=== PATIENT | male | born 1930 | race Asian ===

== ENCOUNTER 2016-06-29 06:32 | Day surgery (SDC) | payer MEDICARE, OTHER ==
[~2016-06-29] VITALS: Ht 157.5 cm; Wt 68.2 kg
[~2016-06-29 06:32] MED LIST: ALLO100T PO; ASPI-556 PO; CHOLESTEROL; METO-325 PO; SITA50 PO
[2016-06-29] MEDS ORDERED: SITA100 PO (06:46)
[2016-06-29] MEDS ORDERED: ATOR40TA28 PO (06:46)
[2016-06-29] MEDS ORDERED: DICLOFENAC SODIUM 0.1% 2.5 ML OPHTHALMIC SOLUTION OS ONE (07:00)
[2016-06-29] MEDS ORDERED: BESIFLOXACIN HCL 0.6% 5 ML OPHTHALMIC SUSPENSION OS ONE (07:00)
[2016-06-29 07:25] LABS: GLUCOSE,POINT OF CARE 114 MG/DL (70-110)
[2016-06-29] MEDS: TROPICAMIDE 1% 2 ML OPHTHALMIC SOLUTION OS SCH ×2 (07:25→07:33)
[2016-06-29] MEDS: PHENYLEPHRINE HCL 2.5% 2 ML OPHTHALMIC SOLUTION OS SCH ×2 (07:26→07:33)
[2016-06-29] MEDS ORDERED: RINGERS SOLUTION,LACTATED 500 ML IV ONE ×2 (08:00→14:20)
[2016-06-29] MEDS ORDERED: MIDAZOLAM HCL 2 MG/2 ML VIAL IVP ONE (12:00)
[2016-06-29] MEDS ORDERED: FentaNYL CITRATE-PF 100 MCG/2 ML VIAL IVP ONE (12:00)
[2016-06-29] MEDS ORDERED: PHENYLEPHRINE HCL 2.5% 2 ML OPHTHALMIC SOLUTION ONE (14:20)
[2016-06-29] MEDS ORDERED: BESIFLOXACIN HCL 0.6% 5 ML OPHTHALMIC SUSPENSION ONE (14:20)
[2016-06-29] MEDS ORDERED: TROPICAMIDE 1% 2 ML OPHTHALMIC SOLUTION ONE (14:20)
[2016-06-29] MEDS ORDERED: DICLOFENAC SODIUM 0.1% 2.5 ML OPHTHALMIC SOLUTION ONE (14:20)
[2016-06-29] MEDS ORDERED: DEXAMETHASONE SOD PHOS 4 MG/ML VIAL IVP ONE (16:57)
[2016-06-29] MEDS ORDERED: TETRACAINE HCL VISCOUS 0.5% 0.6 ML OPHTHALMIC SOLUTION OS ONE (16:57)
[2016-06-29] MEDS ORDERED: LIDOCAINE HCL/PF 1% 2 ML VIAL IM ONE (16:57)
[2016-06-29] MEDS ORDERED: HYALURONATE SODIUM 12 MG/ML 0.8 ML SYRINGE IO ONE (16:57)
[2016-06-29] MEDS ORDERED: POVIDONE-IODINE 10% 15 ML SOLUTION UD TP ONE (16:57)
[2016-06-29] MEDS ORDERED: HYALURONATE SOD/CHONDROITIN SOD 0.5 ML VIAL IO ONE (16:57)
== END 2016-06-29 10:35 | disposition home or self-care (01) ==
LOC: SURGERY 06:32
PROVIDERS: ATTEND Specialist
DX: E11.36 Type 2 diabetes mellitus with diabetic cataract (principal); H25.012 Cortical age-related cataract, left eye; E11.39 Type 2 diabetes mellitus with other diabetic ophthalmic complication; H40.9 Unspecified glaucoma; I10 Essential (primary) hypertension; M54.9 Dorsalgia, unspecified; Z86.11 Personal history of tuberculosis; Z87.01 Personal history of pneumonia (recurrent); Z98.890 Other specified postprocedural states
CPT/HCPCS: 66984; 82962; 93005; C1780; J1100; J2250; J3010; J3490 ×2; J7120

== ENCOUNTER 2016-08-10 05:57 | Day surgery (SDC) | payer MEDICARE, OTHER ==
[~2016-08-10] VITALS: Ht 157.5 cm; Wt 69.1 kg
[~2016-08-10 05:57] MED LIST changes: +ATOR40TA28 PO; -CHOLESTEROL; +SITA100 PO; -SITA50 PO
[2016-08-10] MEDS ORDERED: BESIFLOXACIN HCL 0.6% 5 ML OPHTHALMIC SUSPENSION OD ONE (06:00)
[2016-08-10] MEDS ORDERED: DICLOFENAC SODIUM 0.1% 2.5 ML OPHTHALMIC SOLUTION OD ONE (06:00)
[2016-08-10] MEDS ORDERED: RINGERS SOLUTION,LACTATED 500 ML IV ONE ×2 (06:00→06:04)
[2016-08-10] MEDS ORDERED: PHENYLEPHRINE HCL 2.5% 2 ML OPHTHALMIC SOLUTION ONE (06:03)
[2016-08-10] MEDS ORDERED: BESIFLOXACIN HCL 0.6% 5 ML OPHTHALMIC SUSPENSION ONE (06:03)
[2016-08-10] MEDS ORDERED: TROPICAMIDE 1% 2 ML OPHTHALMIC SOLUTION ONE (06:03)
[2016-08-10] MEDS ORDERED: DICLOFENAC SODIUM 0.1% 2.5 ML OPHTHALMIC SOLUTION ONE (06:03)
[2016-08-10] MEDS: TROPICAMIDE 1% 2 ML OPHTHALMIC SOLUTION OD SCH ×2 (06:43→06:48)
[2016-08-10] MEDS: PHENYLEPHRINE HCL 2.5% 2 ML OPHTHALMIC SOLUTION OD SCH ×2 (06:43→06:48)
[2016-08-10 06:47] LABS: GLUCOSE,POINT OF CARE 109 MG/DL (70-110)
[2016-08-10] MEDS ORDERED: MIDAZOLAM HCL 2 MG/2 ML VIAL IVP ONE (12:00)
[2016-08-10] MEDS ORDERED: FentaNYL CITRATE-PF 100 MCG/2 ML VIAL IVP ONE (12:00)
[2016-08-10] MEDS ORDERED: TETRACAINE HCL VISCOUS 0.5% 0.6 ML OPHTHALMIC SOLUTION OD ONE (15:56)
[2016-08-10] MEDS ORDERED: LIDOCAINE HCL 1% 20 ML VIAL IARTIC ONE (15:56)
[2016-08-10] MEDS ORDERED: HYALURONATE SODIUM 12 MG/ML 0.8 ML SYRINGE IO ONE (15:56)
[2016-08-10] MEDS ORDERED: POVIDONE-IODINE 15 ML SOLUTION UD TP ONE (15:56)
[2016-08-10] MEDS ORDERED: HYALURONATE SOD/CHONDROITIN SOD 0.5 ML VIAL IO ONE (15:56)
[2016-08-10] MEDS ORDERED: BALANCED SALT 15 ML OPHTHALMIC IRRIG.SOLN IO ONE (15:56)
== END 2016-08-10 09:00 | disposition home or self-care (01) ==
LOC: SURGERY 05:57
PROVIDERS: ATTEND Specialist
DX: E10.36 Type 1 diabetes mellitus with diabetic cataract (principal); H25.011 Cortical age-related cataract, right eye; I10 Essential (primary) hypertension; M10.9 Gout, unspecified; Z86.11 Personal history of tuberculosis; Z98.42 Cataract extraction status, left eye; Z79.4 Long term (current) use of insulin
CPT/HCPCS: 66984; 82962; C1780; J2250; J3010; J3490 ×2; J7120

== ENCOUNTER → 2018-06-07 | Outpatient (CLI) | payer MEDICARE, OTHER ==
[~2018-06-07] MED LIST changes: -METO-325 PO; +METO-558 PO
== END | disposition home or self-care (01) ==
LOC: RADPV 09:46
PROVIDERS: ATTEND Internal Medicine Geriatric Medicine
DX: M25.78 Osteophyte, vertebrae (principal); M25.512 Pain in left shoulder; Z87.891 Personal history of nicotine dependence
CPT/HCPCS: 72040

== ENCOUNTER → 2020-01-27 | Outpatient (CLI) | payer MEDICARE, OTHER | END | disposition home or self-care (01) | LOC: RADPV 11:03 | PROVIDERS: ATTEND Internal Medicine Geriatric Medicine | DX: S13.140A Subluxation of C3/C4 cervical vertebrae, initial encounter (principal); M47.816 Spondylosis without myelopathy or radiculopathy, lumbar region; M43.16 Spondylolisthesis, lumbar region; M47.812 Spondylosis without myelopathy or radiculopathy, cervical region; M25.78 Osteophyte, vertebrae; M48.02 Spinal stenosis, cervical region; M25.462 Effusion, left knee; X58.XXXA Exposure to other specified factors, initial encounter; Y93.89 Activity, other specified; Y92.89 Other specified places as the place of occurrence of the external cause; Y99.8 Other external cause status | CPT/HCPCS: 72040; 72100; 73503 ==

== ENCOUNTER 2020-10-23 14:25 | Emergency (ER) | payer MEDICARE, OTHER ==
[~2020-10-23] VITALS: Ht 165.1 cm; Wt 65.9 kg
[2020-10-23] MEDS ORDERED: ACETAMINOPHEN 500 MG TABLET PO ONE (15:15)
[2020-10-23 16:23] VITALS: BP 154/79
== END 2020-10-23 17:27 | disposition home or self-care (01) ==
LOC: EMS 16:06
DX: S09.90XA Unspecified injury of head, initial encounter (principal); M48.02 Spinal stenosis, cervical region; E11.9 Type 2 diabetes mellitus without complications; E78.00 Pure hypercholesterolemia, unspecified; I10 Essential (primary) hypertension; Z79.82 Long term (current) use of aspirin; W19.XXXA Unspecified fall, initial encounter; Y93.H2 Activity, gardening and landscaping; Y92.89 Other specified places as the place of occurrence of the external cause; Y99.8 Other external cause status
CPT/HCPCS: 70450; 72125; 99285